=== PATIENT | male | born 1965 | race Caucasian/White ===

== ENCOUNTER 2024-02-15 10:29 | Emergency (ER) | payer OTHER ==
[2024-02-15 10:45] VITALS: BP 134/85; PULSE 63; RESP 16; TEMP 98.4; BMI 23.3
[2024-02-15 15:17] LABS: URINE APPEARANCE CLEAR; URINE BILIRUBIN NEGATIVE (NEGATIVE); URINE COLOR YELLOW; URINE GLUCOSE (UA) NEGATIVE (NEGATIVE); URINE KETONE NEGATIVE (NEGATIVE); URINE LEUK ESTERASE NEGATIVE (NEGATIVE); URINE NITRITE NEGATIVE (NEGATIVE); URINE PROTEIN NEGATIVE (NEGATIVE); URINE UROBILINOGEN 0.2 mg/dL (0.2-1.0)
[2024-02-15] MEDS ORDERED: ACETAMINOPHEN 325 MG TABLET (FP) ONE (16:00)
[2024-02-15] MEDS ORDERED: SULFAMETHOXAZOLE/TRIMETHOPRIM 800MG/160MG D.S. TABLET ONE (16:00)
[2024-02-15] MEDS: ACETAMINOPHEN 325 MG TABLET (FP) PO ONE (16:05)
[2024-02-15] MEDS: SULFAMETHOXAZOLE/TRIMETHOPRIM 800MG/160MG D.S. TABLET PO ONE (16:05)
== END 2024-02-15 16:06 | disposition home or self-care (01) ==
LOC: JER 10:29
DX: N45.1 Epididymitis (principal)
CPT/HCPCS: 76870-TC; 81003; 99284-25